=== PATIENT | female | born 1965 | race Caucasian/White ===

== ENCOUNTER 2016-10-08 22:44 | Emergency (ER) | payer MEDICARE, BC ==
[~2016-10-08] VITALS: Ht 147.3 cm; Wt 83.6 kg
[2016-10-08] MEDS ORDERED: ARIP10TA14 PO (22:55)
[2016-10-08] MEDS ORDERED: TRAZ-144 PO (22:55)
[2016-10-08] MEDS ORDERED: ATEN25 PO (22:55)
[2016-10-08] MEDS ORDERED: LOSA25TA21 PO (22:55)
[2016-10-08] MEDS ORDERED: SIMV-260 PO (22:55)
[2016-10-08] MEDS ORDERED: LISI-662 PO (22:55)
[2016-10-08] MEDS ORDERED: LEVO50 PO (22:55)
[2016-10-08] MEDS ORDERED: LITH300C3 PO ×2 (22:55)
[2016-10-08] MEDS ORDERED: MET500 PO (22:55)
[2016-10-08] MEDS ORDERED: OMEP20 PO (22:55)
[2016-10-08] MEDS ORDERED: AMLO-511 PO (22:55)
[2016-10-08] MEDS ORDERED: METF500T4 PO (22:55)
[2016-10-08] MEDS ORDERED: BUPR75 PO (22:55)
[2016-10-08 22:57] LABS: GLUCOSE,POINT OF CARE 123 MG/DL (70-110)
[2016-10-08 23:19] LABS: BASOPHILS % (AUTO) 0.6 % (0.0-2.0); EOSINOPHILS % (AUTO) 1.7 % (1.0-6.0); HEMOGLOBIN 12.6 g/dL (12.0-16.0); LYMPHOCYTES # (AUTO) 3.6 K/uL (1.0-4.8); LYMPHOCYTES % (AUTO) 30.8 % (22.0-44.0); MEAN CORPUSCULAR HEMOGLOBIN 25.8 pg (26.0-34.0); MEAN CORPUSCULAR HGB CONC 33.1 G/dL (31.0-37.0); MEAN CORPUSCULAR VOLUME 78 fL (80-100); MONOCYTES # (AUTO) 0.8 K/uL (0.1-1.0); MONOCYTES % (AUTO) 7.1 % (2.0-9.0); NEUTROPHILS # (AUTO) 7.1 K/uL (1.8-7.7); NEUTROPHILS % (AUTO) 59.8 % (40.0-70.0); PLATELET COUNT (AUTO) 323 K/uL (150-450); RED BLOOD CELL COUNT(AUTO) 4.86 MIL/uL (4.00-5.20); RED CELL DISTRIBUTION WIDTH 12.7 % (11.5-14.5); WHITE BLOOD COUNT (AUTO) 11.8 K/uL (4.5-11.0)
[2016-10-08 23:28] LABS: LITHIUM 0.93 mmol/L (0.60-1.20)
[2016-10-08 23:29] LABS: ANION GAP 9 mmol/L (8-16); CALCIUM, TOTAL 9.9 mg/dL (8.8-10.5); CARBON DIOXIDE 26 mmol/L (22-29); CHLORIDE 105 mmol/L (98-107); CREATININE 0.72 mg/dL (0.60-1.30); GLOMERULAR FILTR. RATE CALC > 60 mL/min (>60); POTASSIUM 3.4 mmol/L (3.5-5.1); SODIUM SERUM 140 mmol/L (136-145); UREA NITROGEN, BLOOD 11 mg/dL (7-18)
[2016-10-08 23:31] LABS: INR 0.9 (0.9-1.1); PROTHROMBIN TIME 9.6 SEC (9.4-11.6)
[2016-10-08 23:37] LABS: APPEARANCE,URINE CLEAR (CLEAR); GLUCOSE, URINE (UA) NEGATIVE (NEGATIVE); KETONES,URINE NEGATIVE (NEGATIVE); LEUKOCYTE ESTERASE ,URINE NEGATIVE (NEGATIVE); OCCULT BLOOD,URINE NEGATIVE (NEGATIVE); PROTEIN,URINE NEGATIVE (NEGATIVE)
[2016-10-08 23:39] LABS: ADD UA MICROSCOPIC NO
[2016-10-08 23:42] LABS: B-TYPE NATRIURETIC PEPTIDE 55 pg/mL (0-100)
[2016-10-08 23:54] LABS: ALANINE AMINOTRANSFERASE 21 U/L (12-78); ALBUMIN 3.5 g/dL (3.4-5.0); ASPARTATE AMINOTRANSFERASE 14 U/L (15-37); BILIRUBIN,TOTAL 0.2 mg/dL (0.1-1.0); CREATINE KINASE MB 1.3 ng/mL (0-5); CREATINE KINASE, TOTAL 118 U/L (26-192); TOTAL PROTEIN, SERUM 6.9 g/dL (6.4-8.2)
[2016-10-09] MEDS ORDERED: SODIUM CHLORIDE 0.9% 100 ML ONE (00:35)
[2016-10-09] MEDS ORDERED: IOVERSOL 350 MG/ML 100 ML VIAL ONE (00:35)
[2016-10-09 02:22] VITALS: BP 120/69
== END 2016-10-09 02:25 | disposition home or self-care (01) ==
LOC: EMS 22:49
DX: R06.02 Shortness of breath (principal); R00.1 Bradycardia, unspecified; I10 Essential (primary) hypertension; E11.9 Type 2 diabetes mellitus without complications; E78.00 Pure hypercholesterolemia, unspecified; E03.9 Hypothyroidism, unspecified; K21.9 Gastro-esophageal reflux disease without esophagitis
CPT/HCPCS: 36415; 71010; 71260; 80053; 80178; 81003; 82550; 82553; 82962; 83880; 84484; 85025; 85610; 85730; 93005; 99285; J7050; Q9967

== ENCOUNTER 2017-07-21 00:47 | Emergency (ER) | payer MEDICARE, BC ==
[~2017-07-21] VITALS: Ht 147.3 cm; Wt 86.4 kg
[~2017-07-21 00:47] MED LIST: AMLO-511 PO; ARIP10TA8 PO; ATEN25TA PO; BUPR75 PO; LEVO50 PO; LISI-662 PO; LITH300C3 PO; LOSA25TA21 PO; MET500 PO; METF500T6 PO; OMEP20 PO; SIMV-260 PO; TRAZ-144 PO
[2017-07-21 01:07] LABS: GLUCOSE,POINT OF CARE 115 MG/DL (70-110)
[2017-07-21] MEDS ORDERED: NAPROXEN 250 MG TABLET PO ONE (06:45)
[2017-07-21] MEDS ORDERED: HYDROCODONE/ACETAMINOPHEN 5-325 MG TABLET PO ONE (06:45)
[2017-07-21 06:56] VITALS: BP 120/60
== END 2017-07-21 07:07 | disposition home or self-care (01) ==
LOC: EMS 00:48
DX: M70.89 Other soft tissue disorders related to use, overuse and pressure multiple sites (principal); E11.9 Type 2 diabetes mellitus without complications; K21.9 Gastro-esophageal reflux disease without esophagitis; E78.00 Pure hypercholesterolemia, unspecified; I10 Essential (primary) hypertension; E03.9 Hypothyroidism, unspecified
CPT/HCPCS: 99284

== ENCOUNTER 2018-03-09 03:08 | Emergency (ER) | payer BC, MEDICARE ==
[~2018-03-09] VITALS: Ht 149.9 cm; Wt 85.0 kg
[~2018-03-09 03:08] MED LIST changes: -LOSA25TA21 PO; +LOSA25TA41 PO; +METF-960 PO; -METF500T6 PO; -TRAZ-144 PO; +TRAZ-219 PO
[2018-03-09 03:24] LABS: GLUCOSE,POINT OF CARE 126 MG/DL (70-110)
[2018-03-09] MEDS ORDERED: METF-444 PO (03:28)
[2018-03-09] MEDS ORDERED: KETOROLAC TROMETHAMINE 30 MG/ML VIAL IVP ONE (06:15)
[2018-03-09] MEDS ORDERED: SODIUM CHLORIDE 0.9% 1,000 ML IV ONE (06:15)
[2018-03-09 06:19] LABS: APPEARANCE,URINE CLOUDY (CLEAR); BILIRUBIN,URINE NEGATIVE (NEGATIVE); GLUCOSE, URINE (UA) NEGATIVE (NEGATIVE); KETONES,URINE NEGATIVE (NEGATIVE); LEUKOCYTE ESTERASE ,URINE SMALL (NEGATIVE); NITRATE,URINE NEGATIVE (NEGATIVE); OCCULT BLOOD,URINE MODERATE (NEGATIVE); PH,URINE 6.5 (5.0-8.0); PROTEIN,URINE TRACE (NEGATIVE); UROBILINOGEN,URINE 0.2 mg/dL (<=1.0)
[2018-03-09 06:25] LABS: BACTERIA,URINE Moderate /HPF (None Seen)
[2018-03-09 06:26] LABS: SQUAMOUS EPITHELIAL CELL,UR Many /LPF (None Seen)
[2018-03-09 06:50] LABS: BASOPHILS % (AUTO) 0.5 % (0.0-2.0); EOSINOPHILS % (AUTO) 1.2 % (1.0-6.0); HEMATOCRIT 40.9 % (36-46); HEMOGLOBIN 13.3 g/dL (12.0-16.0); LYMPHOCYTES # (AUTO) 1.9 K/uL (1.0-4.8); LYMPHOCYTES % (AUTO) 12.7 % (22.0-44.0); MEAN CORPUSCULAR HEMOGLOBIN 25.3 pg (26.0-34.0); MEAN CORPUSCULAR HGB CONC 32.5 G/dL (31.0-37.0); MEAN CORPUSCULAR VOLUME 78 fL (80-100); MONOCYTES # (AUTO) 0.7 K/uL (0.1-1.0); MONOCYTES % (AUTO) 4.4 % (2.0-9.0); NEUTROPHILS # (AUTO) 12.4 K/uL (1.8-7.7); NEUTROPHILS % (AUTO) 81.2 % (40.0-70.0); PLATELET COUNT (AUTO) 330 K/uL (150-450); RED BLOOD CELL COUNT(AUTO) 5.25 MIL/uL (4.00-5.20); RED CELL DISTRIBUTION WIDTH 13.5 % (11.5-14.5)
[2018-03-09 07:05] LABS: CALCIUM, TOTAL 9.7 mg/dL (8.8-10.5); CREATININE 1.06 mg/dL (0.60-1.30); POTASSIUM 4.1 mmol/L (3.5-5.1)
[2018-03-09 07:10] LABS: ALBUMIN 3.6 g/dL (3.4-5.0); BILIRUBIN,TOTAL 0.4 mg/dL (0.1-1.0); TOTAL PROTEIN, SERUM 7.4 g/dL (6.4-8.2)
[2018-03-09] MEDS ORDERED: CefTRIAXone 1 GM/DEXTROSE 50 ML IV ONE (07:15)
[2018-03-09] MEDS ORDERED: LOSARTAN POTASSIUM 25 MG TABLET PO ONE (07:45)
[2018-03-09] MEDS ORDERED: ATENOLOL 25 MG TABLET PO ONE (07:45)
[2018-03-09 09:16] VITALS: BP 124/80
== END 2018-03-09 09:22 | disposition home or self-care (01) ==
LOC: EMS 03:08
DX: N12 Tubulo-interstitial nephritis, not specified as acute or chronic (principal); I10 Essential (primary) hypertension; E78.00 Pure hypercholesterolemia, unspecified; E11.9 Type 2 diabetes mellitus without complications; K21.9 Gastro-esophageal reflux disease without esophagitis; E03.9 Hypothyroidism, unspecified; F31.9 Bipolar disorder, unspecified; Z79.899 Other long term (current) drug therapy
CPT/HCPCS: 36415; 80053; 81001; 82962; 85025; 87086; 96365; 96375; 99283; J0696; J1885; J7030

== ENCOUNTER 2018-08-18 14:55 | Emergency (ER) | payer MEDICARE ==
[~2018-08-18] VITALS: Ht 149.9 cm; Wt 84.1 kg
[~2018-08-18 14:55] MED LIST changes: +METF-444 PO; -TRAZ-219 PO; +TRAZ-252 PO
[2018-08-18 15:14] LABS: GLUCOSE,POINT OF CARE 95 MG/DL (70-110)
[2018-08-18] MEDS ORDERED: MethylPREDNISolone SOD SUCC 125 MG/2 ML VIAL IVP ONE (15:30)
[2018-08-18] MEDS ORDERED: DiphenhydrAMINE HCL 50 MG/ML VIAL IVP ONE (15:30)
[2018-08-18] MEDS ORDERED: FAMOTIDINE 10 MG/ML 2 ML VIAL IVP ONE (15:30)
[2018-08-18] MEDS ORDERED: IOVERSOL 350 MG/ML 100 ML VIAL ONE (15:59)
[2018-08-18] MEDS ORDERED: SODIUM CHLORIDE 0.9% 100 ML ONE (15:59)
[2018-08-18 16:00] LABS: BASOPHILS % (AUTO) 0.6 % (0.0-2.0); EOSINOPHILS % (AUTO) 0.7 % (1.0-6.0); HEMATOCRIT 40.6 % (36-46); HEMOGLOBIN 13.2 g/dL (12.0-16.0); LYMPHOCYTES % (AUTO) 12.9 % (22.0-44.0); MEAN CORPUSCULAR HEMOGLOBIN 25.3 pg (26.0-34.0); MEAN CORPUSCULAR HGB CONC 32.5 G/dL (31.0-37.0); MEAN CORPUSCULAR VOLUME 78 fL (80-100); MONOCYTES # (AUTO) 1.6 K/uL (0.1-1.0); MONOCYTES % (AUTO) 10.5 % (2.0-9.0); NEUTROPHILS # (AUTO) 11.6 K/uL (1.8-7.7); NEUTROPHILS % (AUTO) 75.3 % (40.0-70.0); RED BLOOD CELL COUNT(AUTO) 5.21 MIL/uL (4.00-5.20); RED CELL DISTRIBUTION WIDTH 13.6 % (11.5-14.5)
[2018-08-18 16:03] LABS: PLATELET COUNT (AUTO) 246 K/uL (150-450)
[2018-08-18 16:09] LABS: ANION GAP 11 mmol/L (8-16); CALCIUM, TOTAL 9.6 mg/dL (8.8-10.5); CARBON DIOXIDE 26 mmol/L (22-29); CHLORIDE 103 mmol/L (98-107); CREATININE 0.76 mg/dL (0.60-1.30); GLOMERULAR FILTR. RATE CALC > 60 mL/min (>60); GLUCOSE,RANDOM 100 mg/dL (70-110); POTASSIUM 3.2 mmol/L (3.5-5.1); SODIUM SERUM 140 mmol/L (136-145); UREA NITROGEN, BLOOD 7 mg/dL (7-18)
[2018-08-18 16:16] LABS: ALANINE AMINOTRANSFERASE 26 U/L (12-78); ALBUMIN 3.5 g/dL (3.4-5.0); ALKALINE PHOSPHATASE 115 U/L (46-116); ASPARTATE AMINOTRANSFERASE 16 U/L (15-37); BILIRUBIN,TOTAL 0.4 mg/dL (0.1-1.0); TOTAL PROTEIN, SERUM 7.9 g/dL (6.4-8.2)
[2018-08-18 16:21] LABS: INR 0.9 (0.9-1.1); PROTHROMBIN TIME 9.6 SEC (9.4-11.6)
[2018-08-18] MEDS ORDERED: MetroNIDAZOLE 500 MG/NACL 100 ML IV ONE (17:45)
[2018-08-18] MEDS ORDERED: DEXAMETHASONE 4 MG TABLET PO ONE (17:45)
[2018-08-18 19:27] VITALS: BP 151/96
== END 2018-08-18 19:53 | disposition short-term general hospital (02) ==
LOC: EMS 14:56
DX: T78.3XXA Angioneurotic edema, initial encounter (principal); I10 Essential (primary) hypertension; E03.9 Hypothyroidism, unspecified; E78.00 Pure hypercholesterolemia, unspecified; F31.9 Bipolar disorder, unspecified; Z90.710 Acquired absence of both cervix and uterus; Z79.84 Long term (current) use of oral hypoglycemic drugs; Z79.899 Other long term (current) drug therapy; X58.XXXA Exposure to other specified factors, initial encounter
CPT/HCPCS: 36415; 70491; 80053; 82962; 85025; 85610; 86850; 86900; 86901; 96365; 96375; 99291; J1200; J2930; J3490 ×2; J7050; J8540; Q9967

== ENCOUNTER 2019-03-19 10:56 | Emergency (ER) | payer MEDICARE ==
[~2019-03-19] VITALS: Ht 149.9 cm; Wt 85.0 kg
[~2019-03-19 10:56] MED LIST changes: -AMLO-511 PO; +AMLO5TAB9 PO; -MET500 PO; +METH500T7 PO
[2019-03-19] MEDS ORDERED: IBUPROFEN 600 MG TABLET PO ONE (11:30)
[2019-03-19] MEDS ORDERED: ACETAMINOPHEN 500 MG TABLET PO ONE (11:30)
[2019-03-19] MEDS ORDERED: AMOX TR/POT CLAV 875 MG/125 MG TABLET PO ONE (12:15)
[2019-03-19 12:53] VITALS: BP 147/60
== END 2019-03-19 13:13 | disposition home or self-care (01) ==
LOC: EMS 11:00
DX: J02.8 Acute pharyngitis due to other specified organisms (principal); F31.9 Bipolar disorder, unspecified; E11.9 Type 2 diabetes mellitus without complications; K21.9 Gastro-esophageal reflux disease without esophagitis; E78.00 Pure hypercholesterolemia, unspecified; I10 Essential (primary) hypertension; E03.9 Hypothyroidism, unspecified; Z90.710 Acquired absence of both cervix and uterus; Z79.84 Long term (current) use of oral hypoglycemic drugs; Z79.899 Other long term (current) drug therapy
CPT/HCPCS: 87430

== ENCOUNTER 2020-10-10 09:37 | Emergency (ER) | payer MEDICARE, OTHER ==
[~2020-10-10] VITALS: Ht 149.9 cm; Wt 81.8 kg
[~2020-10-10 09:37] MED LIST changes: +AMLO-257 PO; -AMLO5TAB9 PO; +ARIP10TA38 PO; -ARIP10TA8 PO; +ATEN-73 PO; -ATEN25TA PO; -LISI-662 PO; +LISI-894 PO; +LOSA25TA21 PO; -LOSA25TA41 PO; +METH-659 PO; -METH500T7 PO
[2020-10-10 09:42] VITALS: BP 149/95
[2020-10-10] MEDS ORDERED: IBUPROFEN 600 MG TABLET PO ONE (10:15)
[2020-10-10] MEDS ORDERED: HYDROCODONE/ACETAMINOPHEN 5-325 MG TABLET PO ONE (10:15)
== END 2020-10-10 11:12 | disposition home or self-care (01) ==
LOC: EMS 09:39
DX: S29.011A Strain of muscle and tendon of front wall of thorax, initial encounter (principal); F31.9 Bipolar disorder, unspecified; E11.9 Type 2 diabetes mellitus without complications; K21.9 Gastro-esophageal reflux disease without esophagitis; E78.00 Pure hypercholesterolemia, unspecified; I10 Essential (primary) hypertension; Z90.710 Acquired absence of both cervix and uterus; Z79.84 Long term (current) use of oral hypoglycemic drugs; Z79.899 Other long term (current) drug therapy; X50.0XXA Overexertion from strenuous movement or load, initial encounter; Y93.89 Activity, other specified; Y92.89 Other specified places as the place of occurrence of the external cause; Y99.0 Civilian activity done for income or pay
CPT/HCPCS: 99283

== ENCOUNTER 2021-01-04 17:36 | Emergency (ER) | payer MEDICARE, OTHER ==
[~2021-01-04] VITALS: Ht 149.9 cm; Wt 81.8 kg
[2021-01-04 19:30] VITALS: BP 132/70
[2021-01-04] MEDS ORDERED: KETOROLAC TROMETHAMINE 10 MG TABLET PO ONE (20:00)
[2021-01-04] MEDS ORDERED: CLINDAMYCIN HCL 150 MG CAPSULE PO ONE (20:00)
== END 2021-01-04 20:42 | disposition home or self-care (01) ==
LOC: EMS 17:47
DX: K12.2 Cellulitis and abscess of mouth (principal); F31.9 Bipolar disorder, unspecified; E11.9 Type 2 diabetes mellitus without complications; K21.9 Gastro-esophageal reflux disease without esophagitis; E78.00 Pure hypercholesterolemia, unspecified; I10 Essential (primary) hypertension; Z90.710 Acquired absence of both cervix and uterus; Z79.84 Long term (current) use of oral hypoglycemic drugs
CPT/HCPCS: 99283

== ENCOUNTER 2021-01-09 13:35 | Emergency (ER) | payer MEDICARE, OTHER ==
[~2021-01-09] VITALS: Ht 149.9 cm; Wt 79.5 kg
[~2021-01-09 13:35] MED LIST changes: +METF-1211 PO; -METF-960 PO
[2021-01-09 14:00] VITALS: BP 139/77
[2021-01-09] MEDS ORDERED: MORPHINE SULFATE 4 MG/ML SYRINGE IVP ONE (15:30)
[2021-01-09 15:47] LABS: BASOPHILS % (AUTO) 0.7 % (0.0-2.0); EOSINOPHILS % (AUTO) 3.5 % (1.0-6.0); HEMATOCRIT 41.2 % (36-46); HEMOGLOBIN 13.5 g/dL (12.0-16.0); LYMPHOCYTES % (AUTO) 29.4 % (22.0-44.0); MEAN CORPUSCULAR HEMOGLOBIN 25.9 pg (26.0-34.0); MEAN CORPUSCULAR HGB CONC 32.8 G/dL (31.0-37.0); MEAN CORPUSCULAR VOLUME 79 fL (80-100); MONOCYTES # (AUTO) 0.6 K/uL (0.1-1.0); MONOCYTES % (AUTO) 5.9 % (2.0-9.0); NEUTROPHILS # (AUTO) 6.2 K/uL (1.8-7.7); NEUTROPHILS % (AUTO) 60.5 % (40.0-70.0); PLATELET COUNT (AUTO) 371 K/uL (150-450); RED BLOOD CELL COUNT(AUTO) 5.21 MIL/uL (4.00-5.20); RED CELL DISTRIBUTION WIDTH 14.3 % (11.5-14.5)
[2021-01-09 16:00] LABS: ANION GAP 7 mmol/L (8-16); CALCIUM, TOTAL 10.2 mg/dL (8.8-10.5); CARBON DIOXIDE 29 mmol/L (22-29); CHLORIDE 105 mmol/L (98-107); CREATININE 0.91 mg/dL (0.60-1.30); GLOMERULAR FILTR. RATE CALC > 60 mL/min (>60); GLUCOSE,RANDOM 117 mg/dL (70-110); POTASSIUM 3.9 mmol/L (3.5-5.1); SODIUM SERUM 141 mmol/L (136-145); UREA NITROGEN, BLOOD 17 mg/dL (7-18)
[2021-01-09] MEDS ORDERED: SODIUM CHLORIDE 0.9% 100 ML ONE (16:04)
[2021-01-09] MEDS ORDERED: IOHEXOL 350 MG/ML 100 ML VIAL ONE (16:04)
== END 2021-01-09 17:51 | disposition home or self-care (01) ==
LOC: EMS 13:43
DX: M26.621 Arthralgia of right temporomandibular joint (principal); I10 Essential (primary) hypertension; E03.9 Hypothyroidism, unspecified; E11.9 Type 2 diabetes mellitus without complications; F31.9 Bipolar disorder, unspecified; Z79.899 Other long term (current) drug therapy
CPT/HCPCS: 36415; 70487; 80048; 82962; 85025; 96374; 99285; J2270; J7050; Q9967